=== PATIENT | female | born 1965 | race Caucasian/White ===

== ENCOUNTER 2017-01-08 12:59 | Emergency (ER) | payer MEDICAID ==
[~2017-01-08] VITALS: Ht 177.8 cm; Wt 57.6 kg
[~2017-01-08 12:59] MED LIST: ALPR1TAB7 PO; AMLO10TA2 PO; CIPR500T5 PO; [UNRECOGNIZED DRUG - CODE] PO
[2017-01-08] MEDS ORDERED: [UNRECOGNIZED DRUG - OTHER] (13:12)
[2017-01-08] MEDS ORDERED: ZOLP6.252 PO (13:12)
--- NOTE | 2017-01-08 14:17 | NUR ---
Patient discharged to home in stable conditon. Written and verbal after care instructions given to patient. Patient verbalizes understanding of instructions.
== END 2017-01-08 14:17 | disposition home or self-care (01) ==
LOC: ER 12:59
DX: M25.562 Pain in left knee (principal); M25.561 Pain in right knee; F10.20 Alcohol dependence, uncomplicated; F17.200 Nicotine dependence, unspecified, uncomplicated; Z88.0 Allergy status to penicillin; Z90.710 Acquired absence of both cervix and uterus; W18.30XA Fall on same level, unspecified, initial encounter; Y93.89 Activity, other specified; Y99.8 Other external cause status; Y92.89 Other specified places as the place of occurrence of the external cause
CPT/HCPCS: 73560; 73562; 73610; A4663

== ENCOUNTER 2017-03-22 14:05 | Emergency (ER) | payer MEDICAID ==
[~2017-03-22] VITALS: Ht 167.6 cm; Wt 62.6 kg
[~2017-03-22 14:05] MED LIST changes: -ALPR1TAB7 PO; -AMLO10TA2 PO; -CIPR500T5 PO; +ZOLP6.252 PO; -[UNRECOGNIZED DRUG - CODE] PO; +[UNRECOGNIZED DRUG - OTHER]
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
[2017-03-22 15:26] VITALS: BP 110/47
== END 2017-03-22 15:27 | disposition home or self-care (01) ==
LOC: ER 14:05
DX: M25.461 Effusion, right knee (principal); F10.10 Alcohol abuse, uncomplicated; Z88.0 Allergy status to penicillin; Z79.899 Other long term (current) drug therapy
CPT/HCPCS: 29505; 99283; A4663

== ENCOUNTER 2017-05-01 18:58 | Emergency (ER) | payer MEDICAID ==
[~2017-05-01] VITALS: Ht 177.8 cm; Wt 64.4 kg
--- NOTE | 2017-05-01 19:23 | NUR ---
DR. LAMB AT BEDSIDE FOR EVAL.
[2017-05-01] MEDS ORDERED: ONDANSETRON 4 MG/2 ML VIAL IM ONE (19:45)
[2017-05-01] MEDS ORDERED: MORPHINE SULFATE 4 MG/1 ML DISP.SYRIN IM ONE (19:45)
[2017-05-01] MEDS ORDERED: ONDANSETRON 4 MG/2 ML VIAL ONE (19:54)
[2017-05-01] MEDS ORDERED: MORPHINE SULFATE 4 MG/1 ML DISP.SYRIN ONE (19:54)
--- NOTE | 2017-05-01 20:07 | NUR ---
Patient discharged to home in stable conditon. Written and verbal after care instructions given. Patient verbalizes understanding of instructions. PATIENT LEFT WITH STABLE GAIT, ACCOMPANIED BY .
[2017-05-01 20:08] VITALS: BP 149/84
== END 2017-05-01 20:09 | disposition home or self-care (01) ==
LOC: ER 18:58
DX: M25.561 Pain in right knee (principal); F17.200 Nicotine dependence, unspecified, uncomplicated; Z88.0 Allergy status to penicillin
CPT/HCPCS: A4663; J2270; J2405

== ENCOUNTER 2021-02-21 21:35 | Emergency (ER) | payer MEDICAID ==
[~2021-02-21] VITALS: Ht 167.6 cm; Wt 57.6 kg
[2021-02-21] MEDS ORDERED: OXYCODONE/APAP 5-325 MG TABLET PO ONE (22:00)
[2021-02-21 22:11] LABS: MEAN CORPUSCULAR HEMOGLOBIN 29.7 uug (24.7-32.8); MEAN CORPUSCULAR VOLUME 91.3 fL (75.5-95.3); PLATELET COUNT (AUTO) 212 K/uL (179-408)
[2021-02-21] MEDS ORDERED: OXYCODONE/APAP 5-325 MG TABLET ONE (22:11)
[2021-02-21 22:13] LABS: CREATININE 0.8 mg/dL (0.6-1.3); POTASSIUM 4.3 mmol/L (3.5-5.1)
[2021-02-21] MEDS ORDERED: HYDR-3980 PO (23:02)
[2021-02-21 23:10] VITALS: BP 128/74
--- NOTE | 2021-02-21 23:10 | NUR ---
Patient discharged to home in stable condition. Family member is driving patient home. Written and verbal after care instructions given. Patient verbalizes understanding of instructions. Stressed follow up or return to ER for worsening s/s.
== END 2021-02-21 23:10 | disposition home or self-care (01) ==
LOC: ER 21:35
DX: S20.211A Contusion of right front wall of thorax, initial encounter (principal); V44.5XXA Car driver injured in collision with heavy transport vehicle or bus in traffic accident, initial encounter; M25.561 Pain in right knee; Y92.414 Local residential or business street as the place of occurrence of the external cause; K21.9 Gastro-esophageal reflux disease without esophagitis; Z98.82 Breast implant status; Z90.710 Acquired absence of both cervix and uterus; Z88.0 Allergy status to penicillin; F17.210 Nicotine dependence, cigarettes, uncomplicated
CPT/HCPCS: 36415; 71045; 85025; 93005; A4663